=== PATIENT | female | born 1990 | race Caucasian/White ===

== ENCOUNTER 2016-05-24 15:22 | Emergency (ER) | payer OTHER | END 2016-05-24 16:34 | disposition home or self-care (01) | LOC: FER 15:22 | DX: L08.9 Local infection of the skin and subcutaneous tissue, unspecified (principal); B95.62 Methicillin resistant Staphylococcus aureus infection as the cause of diseases classified elsewhere; G40.909 Epilepsy, unspecified, not intractable, without status epilepticus; E03.9 Hypothyroidism, unspecified; Z88.0 Allergy status to penicillin; Z88.1 Allergy status to other antibiotic agents; Z88.2 Allergy status to sulfonamides; Z88.6 Allergy status to analgesic agent; Z88.8 Allergy status to other drugs, medicaments and biological substances; Z79.899 Other long term (current) drug therapy | CPT/HCPCS: 99282 ==

== ENCOUNTER 2020-06-11 17:46 | Emergency (ER) | payer OTHER ==
[~2020-06-11 17:46] MED LIST: BLISOVI FE 1.51 EACH PO; CARBAMAZEPINE200 MG PO; KEPPRA500 MG PO; LEVOTHYROXINE25 MCG PO; ONDANSETRON ODT4 MG PO; OXYBUTYNIN CHLOR5 MG PO; PHENERGAN12.5 M1 PO; PHENERGAN25 M1 PO; TIZANIDINE HCL2 MG PO; VIBERZI75 MG PO
== END 2020-06-11 19:31 | disposition left against medical advice (07) ==
LOC: FER 17:46
DX: R07.9 Chest pain, unspecified (principal); R03.0 Elevated blood-pressure reading, without diagnosis of hypertension; Z53.8 Procedure and treatment not carried out for other reasons
CPT/HCPCS: 93005

== ENCOUNTER 2021-09-03 20:56 | Emergency (ER) | payer OTHER | END 2021-09-03 22:38 | disposition home or self-care (01) | LOC: FER 20:56 | DX: T63.441A Toxic effect of venom of bees, accidental (unintentional), initial encounter (principal); M79.605 Pain in left leg; L53.9 Erythematous condition, unspecified; Z28.310 Unvaccinated for COVID-19; Z88.0 Allergy status to penicillin; Z88.1 Allergy status to other antibiotic agents; Z88.5 Allergy status to narcotic agent; Z88.8 Allergy status to other drugs, medicaments and biological substances | CPT/HCPCS: 99282 ==